=== PATIENT | male | born 1955 | race Asian ===

== ENCOUNTER 2016-11-21 11:15 | Emergency (ER) | payer OTHER ==
[2016-11-21 14:06] VITALS: BP 154/93
== END 2016-11-21 14:06 | disposition home or self-care (01) ==
LOC: ED 11:15
DX: S01.411A Laceration without foreign body of right cheek and temporomandibular area, initial encounter (principal); E11.9 Type 2 diabetes mellitus without complications; W18.30XA Fall on same level, unspecified, initial encounter; Y93.89 Activity, other specified; Y99.8 Other external cause status; Y92.89 Other specified places as the place of occurrence of the external cause
CPT/HCPCS: 90715